=== PATIENT | female | born 1945 | race Caucasian/White ===

== ENCOUNTER → 2017-04-26 | Outpatient (CLI) | payer OTHER, BC ==
[~2017-04-26] MED LIST: ACETAMINOPHEN PO; ALEVE220 M1 PO; CELEXA PO; CELEXA20 MG PO; ESTRADIOL0.5 MG PO; FLUOCINONIDE 0.60 GM TOP; LEVOXYL PO; LISINOPRIL PO; PHENERGAN PO; PREMARIN PO; PRESERVISION S1 EACH PO; PRESERVISION SO1 CAP PO; PRILOSEC PO; PRILOSEC20 MG PO; SYNTHROID0.1 MG PO; TRIAMCINOLONE A15 G2 EXT; VICODIN 5/500 T1 TAB PO; ZESTRIL40 MG PO
--- NOTE | ~2017-04-26 | MY29 ---
[facility] A Service of [facility] [place] RADIOLOGY TEXT RESULTS PATIENT: FRANCK MELGOZA LOCATION: [facility] : 45 UNIT #: [id number] AGE: [address]: Sheyla Sweeney MD SEX: F ORDER DR: [id number] [facility] [address] [place], [place] [address] [id number] O MR#: [id number] Acc #: [id number] NAME: FRANCK MELGOZA : 1945 SEX: F STUDY DATE/TIME: 04/26/2017 10:49 UNIT: [facility] ROOM: STUDY DESCRIPTION: MY [place] SCREENING W/ CAD BILAT Attending Physician: Sheyla Sweeney M.D. Referring Physician: Sheyla Sweeney M.D. Ordering Physician: Sheyla Sweeney M.D. Primary Care Physician: Sheyla Sweeney M.D. MEDICAL IMAGING REPORT This report is preliminary unless electronic signature is present EXAM Digital screening mammogram, 04/26/2017, [facility]. HISTORY 71-year-old woman positive family history, maternal aunts. Annual screen. COMPARISON Mammograms date to 12/09/2006 with most recent 04/23/2016. FINDINGS Digital imaging of each breast was completed utilizing a two-view examination of each breast in craniocaudal and mediolateral-oblique projections. Review and interpretation of digital mammograms include a second review in conjunction with FDA-approved CAD device. There is a normal parenchymal presentation bilaterally consistent with the patient's age. There are no breast masses imaged and no parenchymal asymmetry is visualized. There are no suspicious microcalcifications and I see no focal architectural disturbance. IMPRESSION Negative screening digital mammogram. One-year followup recommended. Patients over the age of 40 are entered into a reminder system with target due date for the next mammogram. A result letter will also be sent to the patient. BIRADS: 1 Negative Dictated by... Clif Gonzales M.D. [facility] A Service [facility] RADIOLOGY TEXT RESULTS PATIENT: FRANCK MELGOZA LOCATION: [facility] : 45 UNIT #: [id number] AGE: [address]: Sheyla Sweeney MD SEX: F ORDER DR: THIS IS AN ELECTRONICALLY VERIFIED REPORT Clif Gonzales M.D. at 04/26/2017 2:17 PM JENA/gerry TD: 04/26/2017 13:52 JOB #: [id number] MEDICAL IMAGING REPORT Page 1 of 1 COPY
== END | disposition home or self-care (01) ==
LOC: CWCC 04-01 11:00
DX: Z12.31 Encounter for screening mammogram for malignant neoplasm of breast (principal); Z80.3 Family history of malignant neoplasm of breast
CPT/HCPCS: G0202